=== PATIENT | female | born 1980 | race Caucasian/White ===

== ENCOUNTER 2018-02-23 16:46 | Emergency (ER) | payer SELFPAY ==
[~2018-02-23] VITALS: Ht 170.2 cm; Wt 100.6 kg
[~2018-02-23 16:46] MED LIST: ANTIBIOTIC; PREN1TAB62 PO; [UNRECOGNIZED DRUG - OTHER] PO
[2018-02-23 17:19] LABS: HCG UR SG 1.027 (1.003-1.030)
[2018-02-23 17:21] LABS: CULTURE INDICATED? YES; MICROSCOPIC INDICATED
[2018-02-23] MEDS ORDERED: PHENAZOPYRIDINE 200 MG TABLET ONE (17:29)
[2018-02-23] MEDS ORDERED: KETOROLAC 30 MG/1 ML ONE (17:29)
[2018-02-23] MEDS ORDERED: PHENAZOPYRIDINE 200 MG TABLET PO ONE (17:30)
[2018-02-23] MEDS ORDERED: KETOROLAC 30 MG/1 ML IM ONE (17:30)
[2018-02-23 18:18] LABS: BASOPHILS # (AUTO) 0.03 x10^3/uL (0-0.1); BASOPHILS % (AUTO) 0 % (0-1); EOSINOPHILS # (AUTO) 0.13 x10^3/uL (0-0.4); EOSINOPHILS % (AUTO) 1 % (1-7); LYMPHOCYTES # (AUTO) 2.45 x10^3/uL (1-3.4); LYMPHOCYTES % (AUTO) 22 % (22-44); MD NO; MEAN CORPUSCULAR HEMOGLOBIN 27.2 pg (27.0-34.8); MEAN PLATELET VOLUME 8.1 fL (7.4-10.4); MONOCYTES # (AUTO) 0.84 x10^3/uL (0.2-0.8); MONOCYTES % (AUTO) 8 % (2-9); NEUTROPHILS # (AUTO) 7.51 x10^3/uL (1.8-6.8); NEUTROPHILS % (AUTO) 69 % (42-75); PLATELET COUNT 245 x10^3/uL (130-400); RED BLOOD COUNT 3.94 x10^6/uL (3.82-5.3); RED CELL DISTRIBUTION WIDTH 14.4 % (9.6-15.2)
[2018-02-23] MEDS ORDERED: MORPHINE SULFATE 4 MG/ML, 1ML ONE (18:24)
[2018-02-23 18:30] LABS: ALBUMIN 3.1 g/dL (3.4-5.0); ANION GAP 8 mmol/L (5-15); CALCIUM 8.3 mg/dL (8.5-10.1); CHLORIDE 108 mmol/L (98-107)
[2018-02-23] MEDS ORDERED: CEFTRIAXONE 1,000 MG in SODIUM CHLORIDE 0.9% 50 ML IV ONE (18:30)
[2018-02-23] MEDS ORDERED: MORPHINE SULFATE 4 MG/ML, 1ML IVPush PRN (18:30)
[2018-02-23] MEDS ORDERED: AZITHROMYCIN 500 MG TABLET PO ONE (18:30)
[2018-02-23] MEDS ORDERED: CEFTRIAXONE PMX 1GM/50ML 50 ML ONE (18:31)
[2018-02-23 18:34] LABS: ALANINE AMINOTRANSFERASE 17 U/L (12-78); ALKALINE PHOSPHATASE 93 U/L (45-117); BILIRUBIN,TOTAL 0.2 mg/dL (0.2-1.0); CREATININE 0.67 mg/dL (0.55-1.02); TOTAL PROTEIN 7.2 g/dL (6.4-8.2)
[2018-02-23 18:49] LABS: CLUE CELLS NONE SEEN (NONE SEEN); WET PREP WBCS MODERATE (FEW)
[2018-02-23] MEDS ORDERED: AZITHROMYCIN 500 MG TABLET ONE (19:40)
[2018-02-23 19:50] VITALS: BP 132/89
== END 2018-02-23 19:52 | disposition home or self-care (01) ==
LOC: ED 19:09
DX: N72 Inflammatory disease of cervix uteri (principal); I25.10 Atherosclerotic heart disease of native coronary artery without angina pectoris
CPT/HCPCS: 36415; 76830; 80053; 81001; 81025; 83690; 85025; 87086; 87210; 87491; 87591; 87808; 96365; 96372; 96375; 99285; J0696; J1885

== ENCOUNTER 2018-09-03 15:23 | Emergency (ER) | payer SELFPAY ==
[~2018-09-03] VITALS: Ht 170.2 cm; Wt 111.6 kg
[2018-09-03] MEDS ORDERED: IBUPROFEN 800 MG TABLET ONE (15:31)
[2018-09-03] MEDS ORDERED: IBUPROFEN 800 MG TABLET PO STA (15:42)
[2018-09-03 16:01] LABS: RAPID INFLUENZA A Negative (Negative); RAPID INFLUENZA B Negative (Negative)
[2018-09-03] MEDS ORDERED: CEFTRIAXONE PMX 1GM/50ML 50 ML ONE (16:14)
[2018-09-03 16:30] LABS: BASOPHILS # (AUTO) 0.01 x10^3/uL (0-0.1); BASOPHILS % (AUTO) 0 % (0-1); EOSINOPHILS # (AUTO) 0.18 x10^3/uL (0-0.4); EOSINOPHILS % (AUTO) 2 % (1-7); LYMPHOCYTES # (AUTO) 0.59 x10^3/uL (1-3.4); LYMPHOCYTES % (AUTO) 7 % (22-44); MD NO; MEAN CORPUSCULAR HEMOGLOBIN 21.9 pg (27.0-34.8); MEAN CORPUSCULAR HGB CONC 31.9 g/dL (32.4-35.8); MEAN CORPUSCULAR VOLUME 68.6 fL (80-100); MONOCYTES # (AUTO) 0.63 x10^3/uL (0.2-0.8); MONOCYTES % (AUTO) 8 % (2-9); NEUTROPHILS # (AUTO) 6.95 x10^3/uL (1.8-6.8); NEUTROPHILS % (AUTO) 83 % (42-75); PLATELET COUNT 239 x10^3/uL (130-400); RED BLOOD COUNT 4.04 x10^6/uL (3.82-5.3); RED CELL DISTRIBUTION WIDTH 15.8 % (9.6-15.2)
[2018-09-03] MEDS ORDERED: SODIUM CHLORIDE 0.9% 1,000ML IVBOLUS ONE (16:30)
[2018-09-03] MEDS ORDERED: CEFTRIAXONE PMX 1GM/50ML 50 ML IVPB ONE (16:30)
[2018-09-03] MEDS ORDERED: AZITHROMYCIN 500 MG in SODIUM CHLORIDE 0.9% 250 ML IV ONE (16:30)
[2018-09-03 16:37] LABS: ALANINE AMINOTRANSFERASE 70 U/L (12-78); ALBUMIN 3.3 g/dL (3.4-5.0); ANION GAP 7 mmol/L (5-15); CALCIUM 8.2 mg/dL (8.5-10.1); CHLORIDE 105 mmol/L (98-107); CREATININE 0.68 mg/dL (0.55-1.02)
[2018-09-03 16:40] LABS: ALKALINE PHOSPHATASE 97 U/L (45-117); BILIRUBIN,TOTAL 0.2 mg/dL (0.2-1.0); TOTAL PROTEIN 7.6 g/dL (6.4-8.2)
[2018-09-03 19:38] VITALS: BP 116/66
--- NOTE | 2018-09-03 19:46 | NUR ---
PT RESTING CALMLY, NAD, DENIES NEEDS, FAMILY AT BEDSIDE, SIDERAILS UP X2,CALL LIGHT WITHIN REACH.
== END 2018-09-03 20:05 | disposition home or self-care (01) ==
LOC: ED 18:33
DX: J15.9 Unspecified bacterial pneumonia (principal)
CPT/HCPCS: 36415; 71046; 80053; 83605; 84145; 85025; 87040; 87400; 96365; 96366; 96368; 99284; J0456; J0696; J7030; J7050

== ENCOUNTER 2019-12-12 07:01 | Emergency (ER) | payer SELFPAY ==
[~2019-12-12] VITALS: Ht 170.2 cm; Wt 106.1 kg
[2019-12-12 07:05] VITALS: BP 139/88
--- NOTE | 2019-12-12 07:30 | NUR ---
Kelvin CHAVIRA at bedside to evaluate pt. Pt states she is , approximately 4 weeks . Pt states this morning began having low abd cramping as well as light VB. Pt deines pain with urination or any other complaints. Pt resting in bed in gown, NADN, denies other needs.
--- NOTE | 2019-12-12 08:02 | NUR ---
Pt ambulatory to bathroom and back to bed without difficulty. Urine sample collected, labeled at bedside, sent to lab. Pt to US via [employer].
[2019-12-12 08:32] LABS: BASOPHILS # (AUTO) 0.07 x10^3/uL (0-0.1); BASOPHILS % (AUTO) 1 % (0-1); EOSINOPHILS % (AUTO) 1 % (1-7); LYMPHOCYTES # (AUTO) 1.85 x10^3/uL (1-3.4); LYMPHOCYTES % (AUTO) 25 % (22-44); MD NO; MEAN CORPUSCULAR HEMOGLOBIN 28.1 pg (27.0-34.8); MEAN CORPUSCULAR VOLUME 85.3 fL (80-100); MEAN PLATELET VOLUME 7.8 fL (7.4-10.4); MONOCYTES # (AUTO) 0.38 x10^3/uL (0.2-0.8); MONOCYTES % (AUTO) 5 % (2-9); NEUTROPHILS % (AUTO) 68 % (42-75); PLATELET COUNT 268 x10^3/uL (130-400); RED BLOOD COUNT 4.56 x10^6/uL (3.82-5.3); RED CELL DISTRIBUTION WIDTH 14.2 % (9.6-15.2)
[2019-12-12 08:44] LABS: MICROSCOPIC INDICATED
== END 2019-12-12 09:18 | disposition home or self-care (01) ==
LOC: ED 07:16
DX: O23.41 Unspecified infection of urinary tract in pregnancy, first trimester (principal); O20.0 Threatened abortion; I25.10 Atherosclerotic heart disease of native coronary artery without angina pectoris; Z3A.01 Less than 8 weeks gestation of pregnancy
CPT/HCPCS: 36415; 76801; 81001; 84702; 85025; 86901; 87086; 99284

== ENCOUNTER 2019-12-25 16:40 | Emergency (ER) | payer SELFPAY ==
[~2019-12-25] VITALS: Ht 170.2 cm; Wt 103.9 kg
--- NOTE | 2019-12-25 17:00 | NUR ---
BREAK RN: PT AMBULATORY TO ROOM 26 W/ C/O LOWER PELVIC/HIP PAIN. PT STATES SHE HAD BRB 2 DAYS AGO. SHE WAS AT CENTER 2 DAYS AGO AND HAD US DONE. WAS NOT TOLD WHAT THEY FOUND ON US BUT WAS TOLD HER WAS NOT VIABLE. PAIN STARTED AFTER TRANSVAGINAL US. PT HAD LOTS OF CLOTS AND BLEEDING LAST NOC. TOOK TEST TODAY. STATES STILL POSITIVE. CAME TO ED FOR CLARIFICATION AND WANTS TO KNOW IF SHE IS STILL AND IF NOT WHAT IS GOING ON W/ PRODUCTS OF CONCEPTION.
--- NOTE | 2019-12-25 17:13 | NUR ---
BREAK RN: YADI HEAD AT BEDSIDE.
[2019-12-25] MEDS ORDERED: NITR100C6 PO (17:26)
[2019-12-25] MEDS ORDERED: PRENATAL VITAMIN (17:34)
--- NOTE | 2019-12-25 17:34 | NUR ---
PT RESTING QUIETLY ON GURNEY; DAUGHTER IN ROOM. PT AWAITING U/S.
[2019-12-25 17:49] LABS: ALANINE AMINOTRANSFERASE 18 U/L (12-78); ALBUMIN 3.4 g/dL (3.4-5.0); ANION GAP 6 mmol/L (5-15); CALCIUM 8.4 mg/dL (8.5-10.1); CHLORIDE 107 mmol/L (98-107); CREATININE 0.77 mg/dL (0.55-1.02)
[2019-12-25 17:54] LABS: BASOPHILS # (AUTO) 0.05 x10^3/uL (0-0.1); BASOPHILS % (AUTO) 0 % (0-1); EOSINOPHILS # (AUTO) 0.16 x10^3/uL (0-0.4); EOSINOPHILS % (AUTO) 1 % (1-7); LYMPHOCYTES # (AUTO) 2.72 x10^3/uL (1-3.4); LYMPHOCYTES % (AUTO) 24 % (22-44); MD NO; MEAN CORPUSCULAR HEMOGLOBIN 28.5 pg (27.0-34.8); MEAN CORPUSCULAR HGB CONC 33.3 g/dL (32.4-35.8); MEAN CORPUSCULAR VOLUME 85.4 fL (80-100); MEAN PLATELET VOLUME 8.3 fL (7.4-10.4); MONOCYTES # (AUTO) 0.72 x10^3/uL (0.2-0.8); MONOCYTES % (AUTO) 6 % (2-9); NEUTROPHILS # (AUTO) 7.89 x10^3/uL (1.8-6.8); NEUTROPHILS % (AUTO) 68 % (42-75); PLATELET COUNT 259 x10^3/uL (130-400); RED BLOOD COUNT 4.67 x10^6/uL (3.82-5.3); RED CELL DISTRIBUTION WIDTH 15.2 % (9.6-15.2)
[2019-12-25 18:06] LABS: ALKALINE PHOSPHATASE 84 U/L (45-117); BILIRUBIN,TOTAL 0.2 mg/dL (0.2-1.0); TOTAL PROTEIN 7.9 g/dL (6.4-8.2)
[2019-12-25 19:04] VITALS: BP 126/81
--- NOTE | 2019-12-25 19:06 | NUR ---
PT RESTING QUIETLY, REPORTS LOWER ABD PAIN, WOULD LIKE PAIN MEDICATION; WILL NOTIFY ERP. PT'S DAUGHTER IN ROOM.
[2019-12-25] MEDS ORDERED: HYDROcodone/APAP 5/325 TABLET PO ONE (19:30)
[2019-12-25] MEDS ORDERED: HYDROcodone/APAP 5/325 TABLET ONE (19:32)
--- NOTE | 2019-12-25 19:35 | NUR ---
NORCO GIVEN PER EMAR.
--- NOTE | 2019-12-25 20:41 | NUR ---
DC INSTRUCTIONS DISCUSSED W/ PT AND HER DAUGHTER. ALBANIAN WRITTEN DC INSTRUCTIONS PROVIDED TO PT. PT & DAUGHTER VERBALIZED UNDERSTANDING.
== END 2019-12-25 20:44 ==
LOC: ED 20:30
DX: O03.9 Complete or unspecified spontaneous abortion without complication (principal); N93.9 Abnormal uterine and vaginal bleeding, unspecified
CPT/HCPCS: 36415; 76830; 80053; 84702; 85025; 86901; 99284

== ENCOUNTER 2019-12-27 14:29 | Emergency (ER) | payer SELFPAY ==
[~2019-12-27] VITALS: Ht 170.2 cm; Wt 104.3 kg
[~2019-12-27 14:29] MED LIST changes: +NITR100C6 PO; +PRENATAL VITAMIN
--- NOTE | 2019-12-27 14:35 | NUR ---
PT AMBULATES WELL TOWARD ROOM FROM TRIAGE.
--- NOTE | 2019-12-27 15:08 | NUR ---
LAB WAS DRAWN, ERP AWAITING RESULT
--- NOTE | 2019-12-27 16:10 | NUR ---
TO U/S PER MARYA
--- NOTE | 2019-12-27 16:53 | NUR ---
PT REPORT TO OMAR MACHUCA RN. PT CARE TRANSFERRED
[2019-12-27] MEDS ORDERED: OXYcodone/APAP 5/325MG TABLET ONE (17:05)
[2019-12-27] MEDS ORDERED: OXYcodone/APAP 5/325MG TABLET PO ONE (17:30)
[2019-12-27 18:41] VITALS: BP 114/78
--- NOTE | 2019-12-27 18:41 | NUR ---
PT FULLY DRESSED, AWAITING DC
== END 2019-12-27 18:48 | disposition home or self-care (01) ==
LOC: ED 16:04
DX: O03.4 Incomplete spontaneous abortion without complication (principal); R10.2 Pelvic and perineal pain
CPT/HCPCS: 36415; 76801; 84702; 99285

== ENCOUNTER 2021-02-16 17:20 | Emergency (ER) | payer SELFPAY ==
[~2021-02-16] VITALS: Ht 170.2 cm; Wt 105.0 kg
[2021-02-16 17:41] VITALS: BP 141/64
[2021-02-16] MEDS ORDERED: METHOCARBAMOL 750 MG TABLET ONE (18:14)
[2021-02-16] MEDS ORDERED: IBUPROFEN 600 MG TABLET ONE (18:14)
[2021-02-16] MEDS ORDERED: IBUPROFEN 600 MG TABLET PO ONE (18:30)
[2021-02-16] MEDS ORDERED: METHOCARBAMOL 750 MG TABLET PO ONE (18:30)
[2021-02-16] MEDS ORDERED: KETOROLAC 30 MG/1 ML ONE (19:16)
[2021-02-16] MEDS ORDERED: KETOROLAC 30 MG/1 ML IM ONE (19:30)
== END 2021-02-16 20:22 | disposition home or self-care (01) ==
LOC: ED 20:15
DX: S39.012A Strain of muscle, fascia and tendon of lower back, initial encounter (principal); I25.10 Atherosclerotic heart disease of native coronary artery without angina pectoris; Y92.89 Other specified places as the place of occurrence of the external cause; Y99.8 Other external cause status
CPT/HCPCS: 72110; 96372; 99283; J1885